=== PATIENT | male | born 1960 | race African-American/Black ===

== ENCOUNTER 2019-08-11 20:46 | Emergency (ER) | payer OTHER ==
[~2019-08-11] VITALS: Ht 177.8 cm; Wt 124.0 kg
[2019-08-12 02:00] VITALS: BP 149/95
== END 2019-08-12 02:01 | disposition home or self-care (01) ==
LOC: ER 20:46
DX: H61.22 Impacted cerumen, left ear (principal); H92.03 Otalgia, bilateral; I10 Essential (primary) hypertension; G89.29 Other chronic pain; M54.5 Low back pain; R51 Headache
CPT/HCPCS: 99283

== ENCOUNTER 2019-10-18 18:06 | Emergency (ER) | payer OTHER ==
[~2019-10-18] VITALS: Ht 177.8 cm; Wt 126.0 kg
[2019-10-19] MEDS ORDERED: BENZONATATE 200MG CAPSULE PO ONE (01:00)
[2019-10-19] MEDS ORDERED: FAMOTIDINE 20MG TABLET PO ONE (01:00)
[2019-10-19 01:25] LABS: HEMATOCRIT 37.1 % (42.0-52.0); HEMOGLOBIN 12.1 g/dL (14.0-18.0); MEAN CORPUSCULAR HEMOGLOBIN 27.8 pg (28.0-32.0); MEAN CORPUSCULAR VOLUME 85.3 fL (80.0-94.0); PLATELET 344 x1000/uL (130-400); RED BLOOD CELL COUNT 4.35 mill/uL (4.7-6.1); RED CELL DISTRIBUTION WIDTH 14.4 % (11.6-14.6)
[2019-10-19 01:34] LABS: CHLORIDE 107 mEq/L (98-107)
[2019-10-19] MEDS ORDERED: ACETAMINOPHEN 500MG TABLET PO ONE (01:45)
[2019-10-19 02:20] VITALS: BP 141/92
== END 2019-10-19 02:14 | disposition home or self-care (01) ==
LOC: ER 18:06
DX: J06.9 Acute upper respiratory infection, unspecified (principal); K92.2 Gastrointestinal hemorrhage, unspecified; J45.909 Unspecified asthma, uncomplicated; I10 Essential (primary) hypertension
CPT/HCPCS: 36415; 85027; 87804; 99284

== ENCOUNTER 2020-04-22 23:21 | Emergency (ER) | payer OTHER ==
[~2020-04-22] VITALS: Ht 177.8 cm; Wt 120.0 kg
[2020-04-23 01:35] VITALS: BP 134/89
== END 2020-04-23 01:39 | disposition home or self-care (01) ==
LOC: ER 23:21
DX: S83.8X2A Sprain of other specified parts of left knee, initial encounter (principal); V48.4XXA Person boarding or alighting a car injured in noncollision transport accident, initial encounter; Y93.89 Activity, other specified; Y92.488 Other paved roadways as the place of occurrence of the external cause; I10 Essential (primary) hypertension; J45.909 Unspecified asthma, uncomplicated
CPT/HCPCS: 99283

== ENCOUNTER 2021-10-11 08:24 | Emergency (ER) | payer OTHER ==
[~2021-10-11] VITALS: Ht 177.8 cm; Wt 123.0 kg
[~2021-10-11 08:24] MED LIST: AMLO10TA80 MT; MYL30 PO; PANT40TA51 MT; SIMV-43 MT; TOPUD PO; VIT1TABL62 PO
[2021-10-11] MEDS ORDERED: ACETAMINOPHEN 325MG TABLET PO ONE (10:15)
[2021-10-11] MEDS ORDERED: IBUPROFEN 600MG TABLET PO ONE (10:15)
[2021-10-11] MEDS ORDERED: ACET-2708 MT (11:50)
[2021-10-11] MEDS ORDERED: HYDR-4001 MT (11:50)
[2021-10-11] MEDS ORDERED: BACL-141 MT (11:50)
[2021-10-11 12:03] VITALS: BP 158/84
== END 2021-10-11 12:04 | disposition home or self-care (01) ==
LOC: ER 08:24
DX: S43.491A Other sprain of right shoulder joint, initial encounter (principal); H71.91 Unspecified cholesteatoma, right ear; X58.XXXA Exposure to other specified factors, initial encounter; Y93.89 Activity, other specified; Y92.89 Other specified places as the place of occurrence of the external cause; Y99.8 Other external cause status; J45.909 Unspecified asthma, uncomplicated; E78.00 Pure hypercholesterolemia, unspecified; I10 Essential (primary) hypertension; Z79.899 Other long term (current) drug therapy
CPT/HCPCS: 73030; 99283

== ENCOUNTER 2022-06-08 20:13 | Inpatient (IN) | payer OTHER ==
[~2022-06-08] VITALS: Ht 177.8 cm; Wt 126.8 kg
[~2022-06-08 20:13] MED LIST changes: +ACET-2708 MT; +BACL-141 MT; +HYDR-4001 MT
[2022-06-08 23:55] LABS: BASOPHILS % 0.7 % (0.0-2.0); EOSINOPHILS % 1.6 % (0.0-5.0); HEMATOCRIT. 36.6 % (42.0-52.0); HEMOGLOBIN. 11.9 g/dL (14.0-18.0); MEAN CORPUSCULAR HEMOGLOBIN 27.4 pg (28.0-32.0); MEAN CORPUSCULAR VOLUME 84.2 fL (80.0-94.0); MEAN PLATELET VOLUME 6.7 fl (7.4-10.4); MONOCYTES % 6.8 % (2.0-8.0); NEUTROPHILS % 61.9 % (40.0-76.0); PLATELET 350 x1000/uL (130-400); RED BLOOD CELL COUNT 4.34 mill/uL (4.7-6.1); RED CELL DISTRIBUTION WIDTH 14.7 % (11.6-14.6)
[2022-06-09 00:32] LABS: CHLORIDE 102 mEq/L (98-107)
[2022-06-09] MEDS ORDERED: KETOROLAC 15MG/ML VIAL IV ONE (01:15)
[2022-06-09] MEDS ORDERED: ASPIRIN 325MG EC TABLET PO ONE (03:45)
[2022-06-09] MEDS ORDERED: DOCUSATE SODIUM 100MG CAPSULE PO PRN (08:15)
[2022-06-09] MEDS ORDERED: HYDROCODONE/ACETAMINOPHEN 5/325MG TABLET PO PRN (08:15)
[2022-06-09] MEDS ORDERED: ONDANSETRON HCL 4MG/2ML INJ IV PRN (08:15)
[2022-06-09] MEDS ORDERED: IPRATROPIUM/ALBUTEROL 0.5-3(2.5)MG/3ML NEB HHN PRN (08:15)
[2022-06-09] MEDS ORDERED: CLONIDINE 0.1MG TABLET PO PRN (08:15)
[2022-06-09] MEDS ORDERED: TRAMADOL 50MG TABLET PO PRN (08:15)
[2022-06-09] MEDS ORDERED: ACETAMINOPHEN 325MG TABLET PO PRN (08:15)
[2022-06-09] MEDS ORDERED: MAGNESIUM/ALUMINUM HYDROXIDE/SIMETHICONE 30ML UDC PO PRN (08:15)
[2022-06-09] MEDS ORDERED: GUAIFENESIN 200MG/10ML SUGAR FREE UDC PO PRN (08:15)
[2022-06-09] MEDS ORDERED: ASPIRIN 81MG EC TABLET PO SCH (09:00)
[2022-06-09] MEDS ORDERED: AMLODIPINE 10MG TABLET PO SCH (09:00)
[2022-06-09] MEDS ORDERED: ENOXAPARIN 30MG/0.3ML SYR SUBCUT SCH (09:00)
[2022-06-09 10:00] VITALS: BP 148/85
[2022-06-09 12:00] VITALS: BP 148/85
[2022-06-09 15:18] VITALS: BP 127/80
== END 2022-06-09 16:14 | disposition home or self-care (01) | DRG 198 ==
LOC: ER 20:13 → 8WST 06-09 04:33 → ENRESERV 06-09 06:59
PROVIDERS: ADMIT Hospitalist; ATTEND Hospitalist
DX: R07.89 Other chest pain (principal); I25.10 Atherosclerotic heart disease of native coronary artery without angina pectoris; E78.00 Pure hypercholesterolemia, unspecified; I10 Essential (primary) hypertension; J45.909 Unspecified asthma, uncomplicated; Z82.49 Family history of ischemic heart disease and other diseases of the circulatory system; Z79.899 Other long term (current) drug therapy
CPT/HCPCS: 36415; 71045; 80053; 83880; 84484; 85025; 93005; 99285; J1650; J1885

== ENCOUNTER 2024-05-21 15:04 | Emergency (ER) | payer OTHER ==
[~2024-05-21] VITALS: Ht 177.8 cm; Wt 154.0 kg
[2024-05-21 15:12] VITALS: BP 93/88; PULSE 96; RESP 18; TEMP 98.6; O2SAT 99
[2024-05-21] MEDS: ONDANSETRON 4MG ODT PO ONE (17:15)
[2024-05-21] MEDS ORDERED: GUAI-450 MT (19:12)
[2024-05-21] MEDS ORDERED: IBUP-2029 MT (19:12)
== END 2024-05-21 19:39 | disposition home or self-care (01) ==
LOC: ER 15:04
DX: B34.9 Viral infection, unspecified (principal); J45.909 Unspecified asthma, uncomplicated; I25.10 Atherosclerotic heart disease of native coronary artery without angina pectoris; E78.00 Pure hypercholesterolemia, unspecified; I10 Essential (primary) hypertension; Z79.899 Other long term (current) drug therapy; Z20.822 Contact with and (suspected) exposure to COVID-19
CPT/HCPCS: 99284; 71045; 87426; 87804 ×2; Q0162